=== PATIENT | male | born 1995 | race Caucasian/White ===

== ENCOUNTER 2023-02-11 14:21 | Emergency (ER) | payer SELFPAY ==
[~2023-02-11] VITALS: Ht 170.2 cm; Wt 90.7 kg
[~2023-02-11 14:21] MED LIST: IBUP-2213
[2023-02-11 14:23] VITALS: BP 150/86
[2023-02-11] MEDS ORDERED: NACL 0.9% 1,000 ML IV ONE ×3 (14:40→17:40)
[2023-02-11] MEDS ORDERED: AMOXIL/CLAVULANATE 875/125 MG 1 TAB PO ONE (15:05)
--- NOTE | 2023-02-11 15:33 | NUR ---
27 years old male biba from home in police custody for evaluation denies pain.
[2023-02-11] MEDS ORDERED: LORazepam 2 MG/ML VIAL IVP ONE ×4 (15:40→19:40)
--- NOTE | 2023-02-11 15:55 | NUR ---
PT DENIED WOUND TO BE IRRIGATED
[2023-02-11] MEDS ORDERED: LORazepam 2 MG/ML VIAL ONE (17:01)
[2023-02-11] MEDS ORDERED: AMOX1TAB8 PO (17:10)
--- NOTE | 2023-02-11 18:21 | NUR ---
patient with tachycardia HR 150 ativan 4 mg total IVP given alert, oriented x4 no pain, safety maintained, in police custody handcuff, officer at bedside.
--- NOTE | 2023-02-11 19:30 | NUR ---
Patient received on bed lying comfortaby and awake. Alert and oriented x4. No acute distress. No complaints of pain or discomfort. Respirations even and unlabored.
--- NOTE | 2023-02-11 21:11 | NUR ---
Patient discharged with v/s stable. Written and verbal after care instructions given and explained. Patient alert, oriented and verbalized understanding of instructions. Ambulatory with in custody. All questions addressed prior to discharge. ID band removed. Patient advised to follow up with PMD. Rx of Amoxicillin given. Patient educated on indication of medication including possible reaction and side effects. Opportunity to ask questions provided and answered.
[2023-02-11 21:13] VITALS: BP 142/77
== END 2023-02-11 21:12 ==
LOC: MED 14:21
DX: S41.031A Puncture wound without foreign body of right shoulder, initial encounter (principal); T43.625A Adverse effect of amphetamines, initial encounter; Z79.899 Other long term (current) drug therapy; W54.0XXA Bitten by dog, initial encounter; Y93.89 Activity, other specified; Y92.89 Other specified places as the place of occurrence of the external cause; Y99.8 Other external cause status
CPT/HCPCS: 96361; 96374; 96376; 99284; J2060; J7030